=== PATIENT | female | born 1990 | race Caucasian/White ===

== ENCOUNTER 2020-09-04 15:38 | Emergency (ER) | payer OTHER ==
[~2020-09-04] VITALS: Ht 165.1 cm; Wt 63.5 kg
[~2020-09-04 15:38] MED LIST: IBUP-974 PO
[2020-09-04 15:46] VITALS: BP 121/88
--- NOTE | 2020-09-04 16:01 | NUR ---
PATIENT PRESENTS TO ED WITH SORE THROAT/DIARRHEA X2 DAYS . . DENIES N/V; SKIN IS PINK/WARM/DRY; AAOX4 WITH EVEN AND STEADY GAIT; LUNGS CLEAR BL; HR EVEN AND REGULAR; PT DENIES ANY FEVER, CP, SOB, OR COUGH AT THIS TIME; PATIENT STATES PAIN OF 0/10 AT THIS TIME; VSS; PATIENT POSITIONED FOR COMFORT; HOB ELEVATED; BEDRAILS UP X2; BED DOWN. ER MD MADE AWARE OF PT STATUS.
--- NOTE | 2020-09-04 16:02 | NUR ---
PATIENT SWABBED FOR COVID
[2020-09-04 16:56] VITALS: BP 121/88
--- NOTE | 2020-09-04 16:56 | NUR ---
Patient discharged with v/s stable. Written and verbal after care instructions given and explained. Patient alert, oriented and verbalized understanding of instructions. Ambulatory with to car. All questions addressed prior to discharge. ID band removed. Patient advised to follow up with PMD. Rx of ibuprofen, promethazine, sudafed given. Patient educated on indication of medication including possible reaction and side effects. Opportunity to ask questions provided and answered.
--- NOTE | 2020-09-05 20:36 | NUR ---
Covid results received from lab. Results = Positive. Hard copy requested from lab and placed in infection controls mailbox.
== END 2020-09-04 16:56 | disposition home or self-care (01) ==
LOC: MED 15:38
DX: U07.1 COVID-19 (principal); Z79.899 Other long term (current) drug therapy
CPT/HCPCS: 87426; 99283; U0003

== ENCOUNTER 2021-05-23 12:34 | Emergency (ER) | payer OTHER ==
[~2021-05-23] VITALS: Ht 152.4 cm; Wt 76.2 kg
[2021-05-23 13:04] VITALS: BP 121/76
[2021-05-23] MEDS ORDERED: NAPR-54 PO (13:08)
[2021-05-23] MEDS ORDERED: PHEN177S23 PO (13:08)
--- NOTE | 2021-05-23 13:25 | NUR ---
Patient discharged with v/s stable. Written and verbal after care instructions ABOUT UPPER RESPIRATORY INFECTION given and explained. Patient alert, oriented and verbalized understanding of instructions. Ambulatory with steady gait. All questions addressed prior to discharge. ID band removed. Patient advised to follow up with PMD. Rx of NAPROXEN AND PHENOL given. Patient educated on indication of medication including possible reaction and side effects. Opportunity to ask questions provided and answered.
== END 2021-05-23 13:25 | disposition home or self-care (01) ==
LOC: MED 12:34
DX: J06.9 Acute upper respiratory infection, unspecified (principal); Z20.822 Contact with and (suspected) exposure to COVID-19; Z79.899 Other long term (current) drug therapy
CPT/HCPCS: 99283

== ENCOUNTER 2022-03-11 21:19 | Emergency (ER) | payer OTHER ==
[~2022-03-11] VITALS: Ht 154.9 cm; Wt 74.8 kg
[~2022-03-11 21:19] MED LIST changes: +NAPR-54 PO; +PHEN177S23 PO
[2022-03-11 21:37] VITALS: BP 118/71
--- NOTE | 2022-03-11 21:44 | NUR ---
COVID-19 and flu swabs collected and sent to lab.
--- NOTE | 2022-03-11 21:48 | NUR ---
Patient waited inside a car.
[2022-03-11 23:47] VITALS: BP 118/71
--- NOTE | 2022-03-11 23:47 | NUR ---
Patient discharged with v/s stable. Written and verbal after care instructions given and explained. Patient verbalized understanding. Ambulatory with steady gait. All questions addressed prior to discharge. Advised to follow up with PMD.
== END 2022-03-11 23:47 | disposition home or self-care (01) ==
LOC: MED 21:19
DX: G44.209 Tension-type headache, unspecified, not intractable (principal); Z20.822 Contact with and (suspected) exposure to COVID-19; Z79.899 Other long term (current) drug therapy
CPT/HCPCS: 99283